=== PATIENT | female | born 1995 | race Caucasian/White ===

== ENCOUNTER 2019-11-18 18:42 | Emergency (ER) | payer MEDICAID ==
[~2019-11-18] VITALS: Ht 170.2 cm; Wt 65.0 kg
[2019-11-18 18:57] VITALS: BP 142/79
== END 2019-11-18 20:00 | disposition left against medical advice (07) ==
LOC: ER 18:42
DX: L02.419 Cutaneous abscess of limb, unspecified (principal); Z53.21 Procedure and treatment not carried out due to patient leaving prior to being seen by health care provider